=== PATIENT | female | born 1985 | race Two or more races ===

== ENCOUNTER 2020-02-08 20:46 | Emergency (ER) | payer SELFPAY ==
[~2020-02-08] VITALS: Ht 172.7 cm; Wt 72.0 kg
[2020-02-08] MEDS ORDERED: MAGNESIUM/ALUMINUM HYDROXIDE/SIMETHICONE 30ML UDC PO STA (21:31)
[2020-02-08 22:13] LABS: CLARITY URINE CLOUDY (CLEAR); COLOR URINE YELLOW (YELLOW); KETONES URINE TRACE (NEGATIVE); LEUKOCYTE ESTERASE URINE 2+ (NEGATIVE); NITRITE URINE NEGATIVE (NEGATIVE); OCCULT BLOOD URINE 2+ (NEGATIVE); PH URINE 5.5 (4.5-8.0); PROTEIN URINE 1+ (NEGATIVE); SPECIFIC GRAVITY URINE 1.025 (1.005-1.030)
[2020-02-08] MEDS ORDERED: NITROFURANTOIN 100MG M/M CAPSULE PO ONE (22:15)
[2020-02-08 22:19] LABS: BASOPHILS % 0.1 % (0.0-2.0); EOSINOPHILS % 0.1 % (0.0-5.0); HEMATOCRIT. 36.6 % (36.0-48.0); HEMOGLOBIN. 12.2 g/dL (12.0-16.0); LYMPHOCYTES % 12.1 % (20.0-50.0); MEAN CORPUSCULAR HEMOGLOBIN 27.5 pg (28.0-32.0); MEAN CORPUSCULAR VOLUME 82.6 fL (81.0-99.0); MEAN PLATELET VOLUME 8.8 fl (7.4-10.4); MONOCYTES % 7.3 % (2.0-8.0); NEUTROPHILS % 80.4 % (40.0-76.0); PLATELET 262 x1000/uL (130-400); RED BLOOD CELL COUNT 4.43 mill/uL (4.2-5.4); RED CELL DISTRIBUTION WIDTH 16.7 % (11.6-14.6)
[2020-02-08 22:27] LABS: CHLORIDE 106 mEq/L (98-107)
[2020-02-08 22:28] LABS: INR 1.1; PROTHROMBIN TIME 11.6 sec (9.6-11.0)
[2020-02-08 22:32] LABS: HCG SCREEN NEGATIVE
[2020-02-08 22:40] VITALS: BP 120/74
== END 2020-02-08 22:42 | disposition home or self-care (01) ==
LOC: ER 20:46
DX: N39.0 Urinary tract infection, site not specified (principal); R03.0 Elevated blood-pressure reading, without diagnosis of hypertension
CPT/HCPCS: 36415; 76700; 80053; 81003; 83605; 84703; 85025; 99285